=== PATIENT | female | born 1960 | race American Indian/Alaskan Native ===

== ENCOUNTER 2017-11-10 13:08 | Emergency (ER) | payer OTHER ==
[~2017-11-10] VITALS: Ht 154.9 cm; Wt 84.9 kg
[~2017-11-10 13:08] MED LIST: ALBIPROI INH; ALBU90OI INH; BLOOD PRESSURE MED; CHLO50; CHLO50 PO; CIPR500 PO; CITA20 PO; CYCL10 PO; DIAZ10 PO; DIAZ2 PO; DIAZ5 PO; DOCU100 PO; FAMO40 PO; GABA300 PO; HYDACE10B PO; HYDACE5 PO; HYDCHL12.5 PO; HYOS.125 SL; IBUP800 PO; KARIVA; LIND60T TOP; LISI5 PO; MELO7.5 PO; METCAR500 PO; METF500 PO; METO10 PO; OXYACE5T PO; OXYACEL PO; PHENY100ER; PHENY100ER PO; PROACE100 PO; RXHYOS.125 PO; RXPROACE PO; SULTRIDS PO; TOLT2 PO; TRAM50 PO; WATER PILL; [UNRECOGNIZED DRUG - OTHER]; [UNRECOGNIZED DRUG - REMARK]; [UNRECOGNIZED DRUG - REMARK]
[2017-11-10 13:45] LABS: BASOPHILS ABSOLUTE AUTO 0.09 K/mm3 (0.00-0.23); BASOPHILS PERCENT AUTO 1 % (0-2); EOSINOPHILS ABSOLUTE AUTO 0.39 K/mm3 (0.00-0.68); EOSINOPHILS PERCENT AUTO 4 % (0-6); Hematocrit 41.7 % (33.0-51.0); Hemoglobin 13.6 g/dL (11.5-16.0); IMMATURE GRAN ABSOLUTE AUTO 0.03 K/mm3 (0.00-0.10); IMMATURE GRAN PERCENT AUTO 0 % (0-1); LYMPHOCYTES ABSOLUTE AUTO 2.81 K/mm3 (0.84-5.20); LYMPHOCYTES PERCENT AUTO 26 % (21-46); MONOCYTES ABSOLUTE AUTO 0.94 K/mm3 (0.16-1.47); MONOCYTES PERCENT AUTO 9 % (4-13); Mean Corpuscular HGB 28.5 pg (26.0-34.0); Mean Corpuscular HGB Conc 32.6 g/dL (31.5-36.5); Mean Corpuscular Volume 87 fL (80-100); NEUTROPHILS ABSOLUTE AUTO 6.73 K/mm3 (1.96-9.15); NEUTROPHILS PERCENT AUTO 61 % (41-73); Platelet Count 362 K/mm3 (150-400); RDW Coefficient Variation 13.6 % (11.7-14.2); RDW Standard Deviation 43.5 fL (35.1-46.3); Red Blood Cell Count 4.77 M/mm3 (3.80-5.20); White Blood Cell Count 10.99 K/mm3 (4.00-11.30)
[2017-11-10 14:04] LABS: Alanine Aminotransfer (ALT/SGP 24 U/L (12-78); Albumin, Blood 3.6 g/dL (3.4-5.0); Alk Phos 106 U/L (50-136); Anion Gap 8 mmol/L (6-16); Aspartate Aminotrans (AST/SGOT 19 U/L (12-37); Bilirubin, Total 0.4 mg/dL (0.1-1.0); Blood Urea Nitrogen 17 mg/dL (8-24); Bun/Creatinine Ratio 27.5 (12.0-20.0); CO2, Blood 27 mmol/L (21-32); Calcium, Blood 8.9 mg/dL (8.5-10.1); Chloride, Blood 103 mmol/L (98-108); Creatinine, Blood 0.62 mg/dL (0.40-1.00); Globulin, Blood 3.6 g/dL (2.2-4.0); Glomerular Filtration Rate >60 (60-); Glucose, Blood 120 mg/dL (70-99); Potassium, Blood 4.3 mmol/L (3.5-5.5); Sodium, Blood 138 mmol/L (136-145); Total Protein, Blood 7.2 g/dL (6.4-8.2)
== END 2017-11-10 18:15 | disposition home or self-care (01) ==
LOC: ER 13:08
PROVIDERS: Physician Assistant
DX: R42 Dizziness and giddiness (principal); M25.569 Pain in unspecified knee; G89.29 Other chronic pain; E86.0 Dehydration; Z88.0 Allergy status to penicillin; Z79.899 Other long term (current) drug therapy; Z79.84 Long term (current) use of oral hypoglycemic drugs; J45.909 Unspecified asthma, uncomplicated; E11.9 Type 2 diabetes mellitus without complications; F17.200 Nicotine dependence, unspecified, uncomplicated
CPT/HCPCS: 36415; 80053; 85025; 93005; 93010; 96360; 96361; 99283; J7030

== ENCOUNTER 2018-02-01 16:10 | Emergency (ER) | payer OTHER ==
[~2018-02-01] VITALS: Ht 154.9 cm; Wt 90.7 kg
[2018-02-01] MEDS ORDERED: Bactrim Ds Tab1 EACH PO (17:10)
[2018-02-01] MEDS ORDERED: CEPH500 PO (17:10)
[2018-02-01] MEDS ORDERED: Mupirocin22 GM TOP (17:10)
== END 2018-02-01 17:28 | disposition home or self-care (01) ==
LOC: ER 16:10
DX: L08.9 Local infection of the skin and subcutaneous tissue, unspecified (principal); Z88.0 Allergy status to penicillin; Z79.899 Other long term (current) drug therapy; Z79.84 Long term (current) use of oral hypoglycemic drugs; J45.909 Unspecified asthma, uncomplicated; E11.9 Type 2 diabetes mellitus without complications; F17.200 Nicotine dependence, unspecified, uncomplicated
CPT/HCPCS: 99282

== ENCOUNTER → 2018-06-02 | Outpatient (CLI) | payer OTHER ==
[~2018-06-02] MED LIST changes: +ACET325 PO; +Bactrim Ds Tab1 EACH PO; +CEPH500 PO; +CHLO100 PO; +HEPARIN 5,5000 UNIT3 SC; +Humulin R500 UNIT/1; +MERREM1 GM IV; +Miralax17 GM PO; +Mupirocin22 GM TOP; +Sodium Chlorid250 M1 IV; +VANCOMYCIN1.25 GM/21 IV
== END | disposition home or self-care (01) ==
LOC: LAB EV 14:41 → LAB SHORT 14:41
DX: S99.822A Other specified injuries of left foot, initial encounter (principal)
CPT/HCPCS: 87070; 87077; 87147; 87186; 87205

== ENCOUNTER → 2018-06-08 | Outpatient (CLI) | payer OTHER | END | disposition home or self-care (01) | LOC: LAB 12:13 → LAB SHORT 12:13 | DX: L03.116 Cellulitis of left lower limb (principal); L08.89 Other specified local infections of the skin and subcutaneous tissue | CPT/HCPCS: 87070; 87075; 87077; 87147; 87186; 87205 ==

== ENCOUNTER 2018-06-18 13:06 | Inpatient (IN) | payer OTHER ==
[~2018-06-18] VITALS: Ht 154.9 cm; Wt 84.1 kg
[~2018-06-18 13:06] MED LIST changes: -ACET325 PO; -CHLO100 PO; -HEPARIN 5,5000 UNIT3 SC; -Humulin R500 UNIT/1; -MERREM1 GM IV; -Miralax17 GM PO; -Sodium Chlorid250 M1 IV; -VANCOMYCIN1.25 GM/21 IV
[2018-06-18 14:22] LABS: Alanine Aminotransfer (ALT/SGP 20 U/L (12-78); Albumin, Blood 3.6 g/dL (3.4-5.0); Albumin/Globulin Ratio 0.9 (0.8-1.8); Alk Phos 92 U/L (50-136); Anion Gap 9 mmol/L (6-16); Aspartate Aminotrans (AST/SGOT 25 U/L (12-37); Bilirubin, Total 0.7 mg/dL (0.1-1.0); Blood Urea Nitrogen 21 mg/dL (8-24); Bun/Creatinine Ratio 22.3 (12.0-20.0); CO2, Blood 24 mmol/L (21-32); Calcium, Blood 8.9 mg/dL (8.5-10.1); Chloride, Blood 99 mmol/L (98-108); Creatinine, Blood 0.94 mg/dL (0.40-1.00); Globulin, Blood 3.9 g/dL (2.2-4.0); Glomerular Filtration Rate >60 (60-); Glucose, Blood 117 mg/dL (70-99); Potassium, Blood 4.4 mmol/L (3.5-5.5); Sodium, Blood 132 mmol/L (136-145); Total Protein, Blood 7.5 g/dL (6.4-8.2)
[2018-06-18 14:28] LABS: International Normalized Ratio 0.99; Prothrombin Time Results 10.5 Sec (9.7-11.5)
[2018-06-18 15:06] LABS: BASOPHILS ABSOLUTE AUTO 0.06 K/mm3 (0.00-0.23); BASOPHILS PERCENT AUTO 1 % (0-2); EOSINOPHILS ABSOLUTE AUTO 0.02 K/mm3 (0.00-0.68); EOSINOPHILS PERCENT AUTO 0 % (0-6); Hemoglobin 12.9 g/dL (11.5-16.0); IMMATURE GRAN ABSOLUTE AUTO 0.04 K/mm3 (0.00-0.10); IMMATURE GRAN PERCENT AUTO 0 % (0-1); LYMPHOCYTES ABSOLUTE AUTO 0.89 K/mm3 (0.84-5.20); LYMPHOCYTES PERCENT AUTO 7 % (21-46); MONOCYTES ABSOLUTE AUTO 0.93 K/mm3 (0.16-1.47); MONOCYTES PERCENT AUTO 7 % (4-13); Mean Corpuscular HGB 28.6 pg (26.0-34.0); Mean Corpuscular HGB Conc 32.3 g/dL (31.5-36.5); Mean Corpuscular Volume 89 fL (80-100); Mean Platelet Volume 8.6 fL (9.1-12.4); NEUTROPHILS ABSOLUTE AUTO 10.76 K/mm3 (1.96-9.15); NEUTROPHILS PERCENT AUTO 85 % (41-73); Platelet Count 400 K/mm3 (150-400); RDW Coefficient Variation 13.2 % (11.7-14.2); RDW Standard Deviation 43.4 fL (35.1-46.3); Red Blood Cell Count 4.51 M/mm3 (3.80-5.20)
[2018-06-18 15:13] LABS: Source, Urine Clean Catch
[2018-06-18 15:31] LABS: Appearance, Urine Clear (Clear); Blood, Urine 1+ (Neg); Color, Urine Yellow (P-Yellow); Glucose Qualitative, Urine Neg (Neg); Ketones, Urine 1+ (Neg); Leukocyte Esterase, Urine 2+ (Neg); Nitrite, Urine Neg (Neg); Protein, Urine 2+ (Neg); Specific Gravity, Urine 1.025 (1.003-1.022); Urobilinogen, Urine 2+ (Normal)
[2018-06-18 15:47] LABS: Bilirubin, Urine 1+ (Neg)
[2018-06-18 15:57] LABS: Bacteria Mod /hpf; Hyaline Casts 0-2 /lpf (0-2); Mucus Heavy (0-Heavy); Squamous Epithelial Cells Many /hpf (Few)
[2018-06-19 05:02] LABS: BASOPHILS ABSOLUTE AUTO 0.06 K/mm3 (0.00-0.23); BASOPHILS PERCENT AUTO 1 % (0-2); EOSINOPHILS ABSOLUTE AUTO 0.01 K/mm3 (0.00-0.68); EOSINOPHILS PERCENT AUTO 0 % (0-6); Hematocrit 36.5 % (33.0-51.0); Hemoglobin 11.7 g/dL (11.5-16.0); IMMATURE GRAN ABSOLUTE AUTO 0.05 K/mm3 (0.00-0.10); IMMATURE GRAN PERCENT AUTO 1 % (0-1); LYMPHOCYTES ABSOLUTE AUTO 0.78 K/mm3 (0.84-5.20); LYMPHOCYTES PERCENT AUTO 10 % (21-46); MONOCYTES ABSOLUTE AUTO 0.76 K/mm3 (0.16-1.47); MONOCYTES PERCENT AUTO 10 % (4-13); Mean Corpuscular HGB 28.1 pg (26.0-34.0); Mean Corpuscular HGB Conc 32.1 g/dL (31.5-36.5); Mean Corpuscular Volume 88 fL (80-100); Mean Platelet Volume 8.8 fL (9.1-12.4); NEUTROPHILS ABSOLUTE AUTO 5.86 K/mm3 (1.96-9.15); NEUTROPHILS PERCENT AUTO 78 % (41-73); Platelet Count 324 K/mm3 (150-400); RDW Coefficient Variation 13.6 % (11.7-14.2); RDW Standard Deviation 43.7 fL (35.1-46.3); Red Blood Cell Count 4.16 M/mm3 (3.80-5.20); White Blood Cell Count 7.52 K/mm3 (4.00-11.30)
--- NOTE | 2018-06-19 05:07 | NUR ---
VSS, AFEBRILE, A/O, CAN BE HYPOTENSIVE AT TIMES, POSITVE UA, 20G L AC, 20G R HAND, 1 PA TO BSC, CBG ACHS, WOUND ON BOTTOM OF L HEEL, PHOTOS IN CHART, REPORTS BEING HOMELESS, SLEPT WELL, NO COMPLAINTS.
[2018-06-19 05:40] LABS: Alanine Aminotransfer (ALT/SGP 26 U/L (12-78); Albumin, Blood 2.8 g/dL (3.4-5.0); Albumin/Globulin Ratio 0.8 (0.8-1.8); Alk Phos 73 U/L (50-136); Anion Gap 8 mmol/L (6-16); Aspartate Aminotrans (AST/SGOT 76 U/L (12-37); Bilirubin, Total 0.5 mg/dL (0.1-1.0); Blood Urea Nitrogen 13 mg/dL (8-24); Bun/Creatinine Ratio 17.1 (12.0-20.0); CO2, Blood 23 mmol/L (21-32); Calcium, Blood 7.7 mg/dL (8.5-10.1); Chloride, Blood 107 mmol/L (98-108); Creatinine, Blood 0.76 mg/dL (0.40-1.00); Globulin, Blood 3.3 g/dL (2.2-4.0); Glomerular Filtration Rate >60 (60-); Glucose, Blood 88 mg/dL (70-99); Potassium, Blood 4.1 mmol/L (3.5-5.5); Sodium, Blood 138 mmol/L (136-145); Total Protein, Blood 6.1 g/dL (6.4-8.2)
--- NOTE | 2018-06-19 16:27 | NUR ---
REQUEST FOR PERMISSION OF CARE:PT WAS SLEEPING, WILL ASK AGAIN TOMORROW. NURSE DIRECTED TO THIS PATIENT SHE "WILL BE GOOD WITH STUDENT AND ALLOWS ASSISTANCE OF STUDENTS IN ALL CARE".
--- NOTE | 2018-06-19 16:42 | NUR ---
PATIENT ABLE TO GET TO BEDSIDE COMMODE INDEPENDENTLY. DR. NEIL STATES THAT HE WILL REWRAP THE FOOT TOMORROW. HE STATES TO KEEP THE DRESSING C/D/I UNTIL THEN. NO COMPLAINTS OF PAIN AT THIS TIME. WILL CONTINUE TO MONITOR
--- NOTE | 2018-06-19 23:20 | NUR ---
LT AC IV DC IV HAD BEEN CHECKED PRIOR TO AND AFTER VANCO ADMINISTRATION AND WAS PATIENT BUT ALARMED FREQUENTLY. NS HAD BEEN RUNNING AFTER VANCO AND IV WAS INFLAMMED. PT HAS 2ND IV RT HAND. COBAN APPLIED AND IV DC LT AC.
--- NOTE | 2018-06-20 05:56 | NUR ---
58 YEAR OLD FEMALE WITH LT FOOT WOUND CAUSED BY BROKEN GLASS WHICH HAS BEEN REMOVED HAD WOUND CULTURE WHICH SHOWED MRSA ECOLI AND ESBL IN WOUND CULTURE CONTINUES IN ISOLATION CONTACT. PT HAS HOMELESS STATUS BUT SAYS SHE IS LOOKING FOR HOUSING WITH OTHER FAMILY MEMBERS BUT CURRENTLY RESIDES DURING NIGHT AT THE [facility] WHERE SHE CAN ONLY SLEEP THERE. DRAINING INFECTED LT FOOT WOUND. EQUIPMENT SERVICES ASSOCIATE REFERRAL MADE TO ASSESS SUPPORT AND RESOURCES. PT COOPERATIVE. COOPERATIVE WITH MEDICAL THERAPY. SMOKING CESSATION ENCOURAGED.
--- NOTE | 2018-06-20 16:10 | NUR ---
TALKED TO ABOUT HYPOTENSION. BOLUS? STOP ZESTRIL OR OREITIC? BOLUS NACL 500 MG ORDERED. WILL LOOK AT MEDS.
--- NOTE | 2018-06-20 17:19 | NUR ---
PATIENT ALERT AND ORIENTED. WAS IN EARLY THIS AM AND CHECKED FOOT. WILL RETURN TOMORROW AND POSS GO TO SURGERY. DRESSING C/D/I. PATIENT INDEPENDENT TO BSC THAT IS NEXT TO BED. IV RT HAND PATENT. BOLUS GIVEN FOR HYPOTENSION. BED IN LOW POSITION. CALL LIGHT WITHIN REACH. WILL CONTINUE TO MONITOR.
--- NOTE | 2018-06-20 17:45 | NUR ---
BLOOD PRESSURE TAKEN AFTER FLUID BOLUS. 101/59.
--- NOTE | 2018-06-21 05:46 | NUR ---
*SHIFT SUMMARY* PATIENT IS ALERT AND ORIENTED. NO COMPLAINTS OF PAIN THROUGHOUT THE NIGHT. PT UP TO BSC INDEPENDENTLY. NPO AT MIDNIGHT. USES CALL LIGHT APPROPRIATELY. NO NEW CHANGES TO STATUS, BED LOWERED AND LOCKED.
[2018-06-21 09:05] LABS: Creatinine, Blood 0.68 mg/dL (0.40-1.00)
--- NOTE | 2018-06-21 11:01 | NUR ---
INTO SDS VIA [employer]. PT A&OX3-REPORTS 10/10 LEFT FOOT/HEEL PAIN. [place] WRAP TO LEFT FOOT C/D/I-LUNGS WITH SCATTERED RHONCHI AND DIMINISHED IN BASES-SATS>90% ON RA. HISTORY AND ALLERGIES REVIEWED. NPO STATUS CONFIRMED. PT IN CONTACT ISOLATION FOR MRSA IN WOUND.
--- NOTE | 2018-06-21 13:13 | NUR ---
LEFT MESSAGE ON CELL PHONE AND AT HIS OFFICE; CAN PATIENT EAT AND DRESSING CHANGES? PER TRUDY AT OFFICE SHE OR MD WILL CALL ME BACK.
--- NOTE | 2018-06-21 13:26 | NUR ---
PER TRUDY AT ; DON'T TOUCH THE WOUND HE WILL DEAL WITH IT AND SHE CAN EAT.
--- NOTE | 2018-06-21 13:30 | NUR ---
TALKED TO ABOUT BACTROBAN ON FOOT WOUND THAT I&D. PER "DON'T TOUCH THE DRESSING" AND BACTROBAN IS ORDERED TID. OK TO D'C
--- NOTE | 2018-06-21 18:16 | NUR ---
PATIENT ALERT AND ORIENTED. TOOK PATIENT TO SURGERY TO I&D LEFY FOOT HEEL. PATIENT TOLERATED WELL. WILL BE IN TOMORROW TO RECHECK WOUND. PATIENT ABLE TO WIGGLE ALL TOES. MEDICATED FOR PAIN. IV X 2 PATENT. UNLABORED RESPIRATIONS. ABLE TO MAKE NEEDS KNOWN. BED IN LOW POSITION. CALL LIGHT WITHIN REACH. WILL CONTINUE TO MONITOR.
--- NOTE | 2018-06-22 05:52 | NUR ---
*SHIFT SUMMARY* PATIENT ALERT AND ORIENTED. HAD COMPLAINTS OF PAIN ONCE THROUGHOUT THE NIGHT, MEDICATED ORDERED. PATIENT SLEPT MOST OF THE NIGHT. PT USED BSC WITH SBA FROM COMPUTER AIDED DESIGN TECHNICIAN. PATIENT IS RECEPTIVE TO CARE AND ASKS QUESTIONS ABOUT FOOT WOUND. DRESSING TO BE CHANGED IN AM BY DR. NEIL. NO NEW CHANGES TO PATIENTS STATUS. VITAL SIGNS STABLE. CALL LIGHT WITHIN REACH. BED LOWERED AND LOCKED.
[2018-06-22 06:38] LABS: BASOPHILS ABSOLUTE AUTO 0.04 K/mm3 (0.00-0.23); BASOPHILS PERCENT AUTO 1 % (0-2); EOSINOPHILS PERCENT AUTO 1 % (0-6); Hemoglobin 11.8 g/dL (11.5-16.0); IMMATURE GRAN ABSOLUTE AUTO 0.02 K/mm3 (0.00-0.10); IMMATURE GRAN PERCENT AUTO 0 % (0-1); LYMPHOCYTES ABSOLUTE AUTO 2.76 K/mm3 (0.84-5.20); LYMPHOCYTES PERCENT AUTO 32 % (21-46); MONOCYTES ABSOLUTE AUTO 0.92 K/mm3 (0.16-1.47); MONOCYTES PERCENT AUTO 11 % (4-13); Mean Corpuscular HGB Conc 31.9 g/dL (31.5-36.5); Mean Corpuscular Volume 88 fL (80-100); NEUTROPHILS ABSOLUTE AUTO 4.88 K/mm3 (1.96-9.15); NEUTROPHILS PERCENT AUTO 56 % (41-73); Platelet Count 402 K/mm3 (150-400); RDW Coefficient Variation 13.1 % (11.7-14.2); RDW Standard Deviation 42.8 fL (35.1-46.3); Red Blood Cell Count 4.21 M/mm3 (3.80-5.20); White Blood Cell Count 8.72 K/mm3 (4.00-11.30)
[2018-06-22 07:06] LABS: Anion Gap 7 mmol/L (6-16); Blood Urea Nitrogen 16 mg/dL (8-24); Bun/Creatinine Ratio 25.9 (12.0-20.0); CO2, Blood 30 mmol/L (21-32); Calcium, Blood 8.6 mg/dL (8.5-10.1); Chloride, Blood 101 mmol/L (98-108); Creatinine, Blood 0.62 mg/dL (0.40-1.00); Glomerular Filtration Rate >60 (60-); Glucose, Blood 139 mg/dL (70-99); Magnesium, Blood 1.8 mg/dL (1.6-2.4); Phosphorus, Blood 3.1 mg/dL (2.5-4.9); Potassium, Blood 3.8 mmol/L (3.5-5.5); Sodium, Blood 138 mmol/L (136-145)
--- NOTE | 2018-06-22 11:12 | NUR ---
PER PATIENT , CAME IN AROUND 715 AND CHANGED DRESSING.
--- NOTE | 2018-06-22 18:27 | NUR ---
ALERT AND ORIENTED. WENT OUTSIDE IN OWN W/C BY HERSELF FOR ABOUT ONE HOUR. LEFT FOOT WAS CHECKED AND WRAPPED BY PODIATRY.PER PATIENT WOULD BE BACK TOMORROW. IV PATENT. ABLE TO MAKE NEEDS KNOWN. UNLABORED RESPIRATIONS. CHERRFUL. DEVELOPMENTALLY DELAYED. REPEATS QUESTIONS. WILL CONTINUE TO MONITOR.
--- NOTE | 2018-06-23 04:26 | NUR ---
SHIFT SUMMARY A/O, ABLE TO MAKE NEEDS KNOWN. COOPERATIVE WITH CARE. ANSWERS QUESTIONS APPROPRIATELY. C/O PAIN TO L FOOT; RATED 9/10, MEDICATED PER EMAR. ABX ADMINISTERED WITHOUT COMPLICATIONS. APPEARED TO REST MUCH OF SHIFT. VSS/AFEBRILE. UP TO BSC INDEPENDENTLY. BED IN LOWEST POSITION. CALL LIGHT AND BELONGINGS WITHIN REACH. WCTM. REPORT TO ONCOMING RN.
[2018-06-23 08:41] LABS: Vancomycin, Trough 14.5 ug/mL (5.0-10.0)
--- NOTE | 2018-06-23 08:43 | NUR ---
PATIENT GAVE PERMISSION FOR ME TO CARE FOR HER TODAY 06/23/18
[2018-06-23] MEDS ORDERED: ACET325 PO (10:59)
[2018-06-23] MEDS ORDERED: DOCU100 PO (11:00)
[2018-06-23] MEDS ORDERED: HEPARIN 5,5000 UNIT3 SC (11:02)
[2018-06-23] MEDS ORDERED: CHLO100 PO (11:03)
[2018-06-23] MEDS ORDERED: Humulin R500 UNIT/1 (11:04)
[2018-06-23] MEDS ORDERED: MERREM1 GM IV (11:05)
[2018-06-23] MEDS ORDERED: Miralax17 GM PO (11:05)
[2018-06-23] MEDS ORDERED: Sodium Chlorid250 M1 IV (11:07)
[2018-06-23] MEDS ORDERED: VANCOMYCIN1.25 GM/21 IV (11:08)
[2018-06-23] MEDS ORDERED: TRAM50 PO (11:09)
--- NOTE | 2018-06-23 16:57 | NUR ---
REPORT CALLED TO BRENDON. IV LEFT IN FOR RETIREMENT ANTIBIOTICS. PATIENT'S FAMILY NOTIFIED OF MOVE. AWAITING TRANSPORT WITH [facility]
== END 2018-06-23 17:55 | disposition home or self-care (01) | DRG 854 ==
LOC: ER 13:06 → MEDS 16:55
PROVIDERS: Hospitalist; Internal Medicine; Pharmacist; Physician Assistant; Podiatrist Foot & Ankle Surgery; ADMIT Internal Medicine
PROC: 0QDM0ZZ Extraction of Left Tarsal, Open Approach (ICD-10-PCS; principal; 2018-06-21 11:30)
DX: A41.01 Sepsis due to Methicillin susceptible Staphylococcus aureus (principal); L03.116 Cellulitis of left lower limb; I10 Essential (primary) hypertension; G89.4 Chronic pain syndrome; E11.40 Type 2 diabetes mellitus with diabetic neuropathy, unspecified; F41.8 Other specified anxiety disorders; M51.36 Other intervertebral disc degeneration, lumbar region; G40.909 Epilepsy, unspecified, not intractable, without status epilepticus; Z79.4 Long term (current) use of insulin; B96.4 Proteus (mirabilis) (morganii) as the cause of diseases classified elsewhere; F17.210 Nicotine dependence, cigarettes, uncomplicated; S91.332A Puncture wound without foreign body, left foot, initial encounter; W25.XXXA Contact with sharp glass, initial encounter; Y92.9 Unspecified place or not applicable
CPT/HCPCS: 36415; 73630; 80053; 80069; 80202; 81001; 82565; 82947; 83605; 83735; 85025; 85610; 87040; 87070; 87075; 87076; 87077; 87086; 87185; 87186; 87205; 93005; 93010; 96365; 96366; 96367; 96375; 97110; 97162; 97530; 99285-25; C1751; J0694; J0744; J1100; J1644; J2185; J2405; J3010; J3370; J7030; J7040; J7050; J7120; P9612

== ENCOUNTER → 2018-09-09 | Outpatient (CLI) | payer OTHER ==
[~2018-09-09] MED LIST changes: +ACET325 PO; +CHLO100 PO; +HEPARIN 5,5000 UNIT3 SC; +Humulin R500 UNIT/1; +MERREM1 GM IV; +Miralax17 GM PO; +Sodium Chlorid250 M1 IV; +VANCOMYCIN1.25 GM/21 IV
[2018-09-09 12:12] LABS: BASOPHILS ABSOLUTE AUTO 0.09 K/mm3 (0.00-0.23); BASOPHILS PERCENT AUTO 1 % (0-2); EOSINOPHILS ABSOLUTE AUTO 0.17 K/mm3 (0.00-0.68); EOSINOPHILS PERCENT AUTO 1 % (0-6); Hematocrit 38.1 % (33.0-51.0); Hemoglobin 13.2 g/dL (11.5-16.0); IMMATURE GRAN ABSOLUTE AUTO 0.07 K/mm3 (0.00-0.10); IMMATURE GRAN PERCENT AUTO 1 % (0-1); LYMPHOCYTES ABSOLUTE AUTO 2.54 K/mm3 (0.84-5.20); LYMPHOCYTES PERCENT AUTO 19 % (21-46); MONOCYTES ABSOLUTE AUTO 1.57 K/mm3 (0.16-1.47); MONOCYTES PERCENT AUTO 12 % (4-13); Mean Corpuscular HGB 28.8 pg (26.0-34.0); Mean Corpuscular HGB Conc 34.6 g/dL (31.5-36.5); Mean Platelet Volume 8.9 fL (9.1-12.4); NEUTROPHILS ABSOLUTE AUTO 8.77 K/mm3 (1.96-9.15); NEUTROPHILS PERCENT AUTO 66 % (41-73); Platelet Count 502 K/mm3 (150-400); RDW Coefficient Variation 13.6 % (11.7-14.2); Red Blood Cell Count 4.58 M/mm3 (3.80-5.20); White Blood Cell Count 13.21 K/mm3 (4.00-11.30)
[2018-09-09 12:27] LABS: Alanine Aminotransfer (ALT/SGP 35 U/L (12-78); Albumin, Blood 3.2 g/dL (3.4-5.0); Albumin/Globulin Ratio 0.7 (0.8-1.8); Alk Phos 119 U/L (40-126); Anion Gap 9 mmol/L (6-16); Aspartate Aminotrans (AST/SGOT 19 U/L (12-37); Bilirubin, Total 0.5 mg/dL (0.1-1.0); Blood Urea Nitrogen 19 mg/dL (8-24); Bun/Creatinine Ratio 25.3 (12.0-20.0); CO2, Blood 26 mmol/L (21-32); Chloride, Blood 95 mmol/L (98-108); Creatinine, Blood 0.75 mg/dL (0.40-1.00); Globulin, Blood 4.9 g/dL (2.2-4.0); Glomerular Filtration Rate >60 (60-); Glucose, Blood 99 mg/dL (70-99); Potassium, Blood 4.4 mmol/L (3.5-5.5); Sodium, Blood 130 mmol/L (136-145); Total Protein, Blood 8.1 g/dL (6.4-8.2)
[2018-09-09 12:50] LABS: Mean Corpuscular Volume 83 fL (80-100)
== END ==
LOC: LAB SHORT 12:06 → LAB EV 12:06
PROVIDERS: Nurse Practitioner
DX: L08.9 Local infection of the skin and subcutaneous tissue, unspecified (principal)
CPT/HCPCS: 80053; 85025

== ENCOUNTER → 2018-09-09 | Outpatient (CLI) | payer OTHER | LOC: LAB EV 11:25 → LAB SHORT 11:25 | DX: L08.9 Local infection of the skin and subcutaneous tissue, unspecified (principal) | CPT/HCPCS: 87070; 87077; 87147; 87186; 87205 ==

== ENCOUNTER 2018-10-14 10:46 | Day surgery (SDC) | payer OTHER ==
[~2018-10-14] VITALS: Ht 154.9 cm; Wt 84.5 kg
--- NOTE | 2018-10-14 12:31 | NUR ---
10/14/18 1231 Luc Harris 1ST IV ATTEMPT IN LAC INFILTRATED, ORSC.RXS 2ND IV ATTEMPT IN LH UNSUCCESSFUL, ORSC.RXS 3RD IV ATTEMPT IN RH UNSUCCESSFUL, ORSC.RXS 4TH IV ATTEMPT IN LEFT FOOT SUCCESSFUL, ORSC,RXS
[2018-10-14 13:28] LABS: BASOPHILS ABSOLUTE AUTO 0.11 K/mm3 (0.00-0.23); BASOPHILS PERCENT AUTO 1 % (0-2); EOSINOPHILS ABSOLUTE AUTO 0.35 K/mm3 (0.00-0.68); EOSINOPHILS PERCENT AUTO 2 % (0-6); Hematocrit 42.9 % (33.0-51.0); Hemoglobin 13.7 g/dL (11.5-16.0); IMMATURE GRAN ABSOLUTE AUTO 0.05 K/mm3 (0.00-0.10); IMMATURE GRAN PERCENT AUTO 0 % (0-1); LYMPHOCYTES ABSOLUTE AUTO 3.42 K/mm3 (0.84-5.20); LYMPHOCYTES PERCENT AUTO 23 % (21-46); MONOCYTES ABSOLUTE AUTO 1.18 K/mm3 (0.16-1.47); MONOCYTES PERCENT AUTO 8 % (4-13); Mean Corpuscular HGB 28.1 pg (26.0-34.0); Mean Corpuscular HGB Conc 31.9 g/dL (31.5-36.5); Mean Corpuscular Volume 88 fL (80-100); Mean Platelet Volume 8.8 fL (9.1-12.4); NEUTROPHILS ABSOLUTE AUTO 9.52 K/mm3 (1.96-9.15); NEUTROPHILS PERCENT AUTO 65 % (41-73); Platelet Count 413 K/mm3 (150-400); RDW Coefficient Variation 14.2 % (11.7-14.2); RDW Standard Deviation 45.5 fL (35.1-46.3); Red Blood Cell Count 4.87 M/mm3 (3.80-5.20); White Blood Cell Count 14.63 K/mm3 (4.00-11.30)
[2018-10-14 13:58] LABS: Anion Gap 6 mmol/L (6-16); Blood Urea Nitrogen 21 mg/dL (8-24); CO2, Blood 27 mmol/L (21-32); Calcium, Blood 9.5 mg/dL (8.5-10.1); Chloride, Blood 102 mmol/L (98-108); Creatinine, Blood 0.62 mg/dL (0.40-1.00); Glomerular Filtration Rate >60 (60-); Glucose, Blood 91 mg/dL (70-99); Potassium, Blood 4.3 mmol/L (3.5-5.5); Sodium, Blood 135 mmol/L (136-145)
--- NOTE | 2018-10-14 15:29 | NUR ---
10/14/18 1529 FosterSherrie S GOOD CAP REFILL TO LEFT TOES. ABLE TO FEEL ALITTLE BIT TOUCH TO TOES, BUT ALSO NUMB. LEFT FOOT ELEVATED UP ON PILLOW IN RECLINER WITH ICE BEHIND HER LEFT KNEE. PT. EATING [employer] & DRINKING COFFEE. GARCÍA AT HER SIDE IN ROOM ALSO.
== END 2018-10-14 16:20 | disposition home or self-care (01) ==
LOC: ORSCSDS 10:46
PROVIDERS: Podiatrist Foot & Ankle Surgery
PROC: 0JBR0ZZ Excision of Left Foot Subcutaneous Tissue and Fascia, Open Approach (ICD-10-PCS; principal; 2018-10-14 12:15)
PROC: 0LBP0ZZ Excision of Left Lower Leg Tendon, Open Approach (ICD-10-PCS; principal; 2018-10-14 12:15)
DX: L02.612 Cutaneous abscess of left foot (principal); E78.5 Hyperlipidemia, unspecified; I10 Essential (primary) hypertension; J44.9 Chronic obstructive pulmonary disease, unspecified; E11.9 Type 2 diabetes mellitus without complications; F17.210 Nicotine dependence, cigarettes, uncomplicated; Z79.899 Other long term (current) drug therapy
CPT/HCPCS: 36415; 80048; 82947; 85025; 87070; 87075; 87077; 87186; 87205; A9270-GY; J2250; J2704; J3010; J7120

== ENCOUNTER 2019-04-06 12:57 | Emergency (ER) | payer OTHER ==
[~2019-04-06] VITALS: Ht 154.9 cm; Wt 85.7 kg
[2019-04-06] MEDS ORDERED: Simvastatin20 MG PO (13:10)
[2019-04-06] MEDS ORDERED: PROP10 PO (13:11)
[2019-04-06] MEDS ORDERED: LISI5 PO (13:11)
[2019-04-06] MEDS ORDERED: Zantac150 MG PO (13:12)
[2019-04-06] MEDS ORDERED: Mobic15 MG PO (13:12)
[2019-04-06] MEDS ORDERED: METF500C PO (13:13)
[2019-04-06] MEDS ORDERED: CHLO50 PO (13:14)
[2019-04-06] MEDS ORDERED: Zanaflex4 MG PO (13:15)
[2019-04-06] MEDS ORDERED: MONT10T PO (13:15)
[2019-04-06] MEDS ORDERED: DICL75ER PO (13:16)
[2019-04-06 14:52] LABS: Source, Urine Catheter
[2019-04-06 14:55] LABS: Blood, Urine 1+ (Neg); Glucose Qualitative, Urine Neg (Neg); Ketones, Urine 4+ (Neg); Leukocyte Esterase, Urine 1+ (Neg); Nitrite, Urine Neg (Neg); Protein, Urine 2+ (Neg); Urobilinogen, Urine 2+ (Normal)
[2019-04-06 15:04] LABS: Bilirubin, Urine 1+ (Neg)
[2019-04-06 15:07] LABS: Appearance, Urine Hazy (Clear); Color, Urine Amber (P-Yellow); Mucus Mod (0-Heavy)
[2019-04-06 15:08] LABS: Bacteria Few /hpf; Squamous Epithelial Cells Few /hpf (Few)
[2019-04-06 16:25] LABS: Influenza A Negative (NEGATIVE); Influenza B Negative (NEGATIVE)
[2019-04-06 16:45] LABS: Calcium, Ionized (POC) 1.07 mmol/L (1.10-1.46); Chloride (POC) 99 mmol/L (98-108); Creatinine (POC) 0.6 mg/dL (0.6-1.0); Glucose (ISTAT POC) 116 mg/dL (70-99); Sodium (POC) 139 mmol/L (135-148); Total CO2 (POC) 31 mmol/L (21-32)
[2019-04-06] MEDS ORDERED: PROM25 PO (16:54)
== END 2019-04-06 17:35 | disposition home or self-care (01) ==
LOC: ER 12:57
PROVIDERS: Emergency Medicine
DX: A08.4 Viral intestinal infection, unspecified (principal); E11.9 Type 2 diabetes mellitus without complications; J45.909 Unspecified asthma, uncomplicated; F17.210 Nicotine dependence, cigarettes, uncomplicated; Z79.899 Other long term (current) drug therapy; Z79.84 Long term (current) use of oral hypoglycemic drugs
CPT/HCPCS: 71046; 80047; 80053; 81001; 85014; 85025; 87086; 87804; 93005; 93010; 96361; 96374; 96376; 99284-25; J2550; J7120; P9612

== ENCOUNTER 2019-11-07 18:38 | Emergency (ER) | payer OTHER ==
[~2019-11-07] VITALS: Ht 154.9 cm; Wt 96.2 kg
[~2019-11-07 18:38] MED LIST changes: +DICL75ER PO; +METF500C PO; +MONT10T PO; +Mobic15 MG PO; +PROM25 PO; +PROP10 PO; +Simvastatin20 MG PO; +Zanaflex4 MG PO; +Zantac150 MG PO
[2019-11-07 19:42] LABS: BASOPHILS ABSOLUTE AUTO 0.06 K/mm3 (0.00-0.23); BASOPHILS PERCENT AUTO 1 % (0-2); EOSINOPHILS ABSOLUTE AUTO 0.03 K/mm3 (0.00-0.68); EOSINOPHILS PERCENT AUTO 0 % (0-6); Hematocrit 46.6 % (33.0-51.0); Hemoglobin 15.2 g/dL (11.5-16.0); IMMATURE GRAN ABSOLUTE AUTO 0.04 K/mm3 (0.00-0.10); IMMATURE GRAN PERCENT AUTO 0 % (0-1); LYMPHOCYTES ABSOLUTE AUTO 2.04 K/mm3 (0.84-5.20); LYMPHOCYTES PERCENT AUTO 16 % (21-46); MONOCYTES ABSOLUTE AUTO 0.53 K/mm3 (0.16-1.47); MONOCYTES PERCENT AUTO 4 % (4-13); Mean Corpuscular HGB 28.4 pg (26.0-34.0); Mean Corpuscular HGB Conc 32.6 g/dL (31.5-36.5); Mean Corpuscular Volume 87 fL (80-100); Mean Platelet Volume 10.1 fL (9.1-12.4); NEUTROPHILS ABSOLUTE AUTO 9.93 K/mm3 (1.96-9.15); NEUTROPHILS PERCENT AUTO 79 % (41-73); Platelet Count 372 K/mm3 (150-400); RDW Coefficient Variation 14.1 % (11.7-14.2); Red Blood Cell Count 5.35 M/mm3 (3.80-5.20); White Blood Cell Count 12.63 K/mm3 (4.00-11.30)
[2019-11-07 20:05] LABS: Base Excess Venous 3.4 mmol/L; Bicarbonate Venous 25.2 mmol/L (24.0-30.0); pH Blood Venous 7.33 (7.34-7.37)
[2019-11-07 20:28] LABS: Alanine Aminotransfer (ALT/SGP 31 U/L (12-78); Albumin, Blood 3.6 g/dL (3.4-5.0); Albumin/Globulin Ratio 0.9 (0.8-1.8); Alk Phos 93 U/L (50-136); Anion Gap 5 mmol/L (6-16); Aspartate Aminotrans (AST/SGOT 23 U/L (12-37); Bilirubin, Total 0.6 mg/dL (0.1-1.0); Blood Urea Nitrogen 21 mg/dL (8-24); Bun/Creatinine Ratio 24.7 (12.0-20.0); CO2, Blood 30 mmol/L (21-32); Calcium, Blood 8.4 mg/dL (8.5-10.1); Chloride, Blood 101 mmol/L (98-108); Creatinine, Blood 0.85 mg/dL (0.40-1.00); Globulin, Blood 3.9 g/dL (2.2-4.0); Glomerular Filtration Rate >60 (60-); Glucose, Blood 122 mg/dL (70-99); Potassium, Blood 4.3 mmol/L (3.5-5.5); Sodium, Blood 136 mmol/L (136-145); Total Protein, Blood 7.5 g/dL (6.4-8.2); Troponin I <0.015 ng/mL (0.000-0.040)
[2019-11-08] MEDS ORDERED: Colace100 MG PO (12:03)
[2019-11-08] MEDS ORDERED: OMEP20ER PO (12:03)
[2019-11-08] MEDS ORDERED: PRED20 PO (12:03)
== END 2019-11-08 00:45 | disposition home or self-care (01) ==
LOC: ER 18:38
PROVIDERS: Emergency Medicine
DX: R07.9 Chest pain, unspecified (principal); I10 Essential (primary) hypertension; E11.9 Type 2 diabetes mellitus without complications; G43.909 Migraine, unspecified, not intractable, without status migrainosus; F41.8 Other specified anxiety disorders; Z88.0 Allergy status to penicillin; Z79.899 Other long term (current) drug therapy; Z79.84 Long term (current) use of oral hypoglycemic drugs; Z87.891 Personal history of nicotine dependence
CPT/HCPCS: 36415; 71046; 71260; 80053; 82803; 83880; 84484; 85025; 93005; 93010; 96374-59; 99285-25; J2405; Q9967

== ENCOUNTER 2019-11-11 09:06 | Emergency (ER) | payer OTHER ==
[~2019-11-11] VITALS: Ht 154.9 cm; Wt 96.2 kg
[~2019-11-11 09:06] MED LIST changes: +Colace100 MG PO; +OMEP20ER PO; +PRED20 PO
[2019-11-11] MEDS ORDERED: ANUSOL HC PR (09:32)
[2019-11-11] MEDS ORDERED: LAVAP4L PO (09:32)
== END 2019-11-11 09:57 | disposition home or self-care (01) ==
LOC: ER 09:06
DX: K59.00 Constipation, unspecified (principal); Z88.0 Allergy status to penicillin; Z79.899 Other long term (current) drug therapy; Z79.52 Long term (current) use of systemic steroids; Z79.84 Long term (current) use of oral hypoglycemic drugs; J45.909 Unspecified asthma, uncomplicated; E11.9 Type 2 diabetes mellitus without complications; F41.9 Anxiety disorder, unspecified; F32.9 Major depressive disorder, single episode, unspecified; Z87.820 Personal history of traumatic brain injury; I10 Essential (primary) hypertension; Z87.891 Personal history of nicotine dependence
CPT/HCPCS: 99283

== ENCOUNTER 2020-02-03 07:31 | Emergency (ER) | payer OTHER ==
[~2020-02-03] VITALS: Ht 154.9 cm; Wt 95.2 kg
[~2020-02-03 07:31] MED LIST changes: +ANUSOL HC PR; +LAVAP4L PO
[2020-02-03 08:03] LABS: BASOPHILS ABSOLUTE AUTO 0.07 K/mm3 (0.00-0.23); BASOPHILS PERCENT AUTO 1 % (0-2); EOSINOPHILS ABSOLUTE AUTO 0.23 K/mm3 (0.00-0.68); EOSINOPHILS PERCENT AUTO 2 % (0-6); Hematocrit 49.1 % (33.0-51.0); Hemoglobin 15.8 g/dL (11.5-16.0); IMMATURE GRAN ABSOLUTE AUTO 0.08 K/mm3 (0.00-0.10); IMMATURE GRAN PERCENT AUTO 1 % (0-1); LYMPHOCYTES ABSOLUTE AUTO 2.19 K/mm3 (0.84-5.20); LYMPHOCYTES PERCENT AUTO 16 % (21-46); MONOCYTES ABSOLUTE AUTO 0.84 K/mm3 (0.16-1.47); MONOCYTES PERCENT AUTO 6 % (4-13); Mean Corpuscular HGB 28.2 pg (26.0-34.0); Mean Corpuscular HGB Conc 32.2 g/dL (31.5-36.5); Mean Corpuscular Volume 88 fL (80-100); Mean Platelet Volume 9.1 fL (9.1-12.4); NEUTROPHILS ABSOLUTE AUTO 10.43 K/mm3 (1.96-9.15); NEUTROPHILS PERCENT AUTO 75 % (41-73); Platelet Count 497 K/mm3 (150-400); RDW Coefficient Variation 14.3 % (11.7-14.2); RDW Standard Deviation 45.7 fL (35.1-46.3); White Blood Cell Count 13.84 K/mm3 (4.00-11.30)
[2020-02-03 08:24] LABS: Alanine Aminotransfer (ALT/SGP 30 U/L (12-78); Albumin, Blood 3.4 g/dL (3.4-5.0); Albumin/Globulin Ratio 0.7 (0.8-1.8); Alk Phos 97 U/L (50-136); Anion Gap 8 mmol/L (6-16); Aspartate Aminotrans (AST/SGOT 38 U/L (12-37); Bilirubin, Total 0.8 mg/dL (0.1-1.0); Blood Urea Nitrogen 14 mg/dL (8-24); Bun/Creatinine Ratio 21.8 (12.0-20.0); CO2, Blood 26 mmol/L (21-32); Calcium, Blood 9.2 mg/dL (8.5-10.1); Chloride, Blood 105 mmol/L (98-108); Creatinine, Blood 0.64 mg/dL (0.40-1.00); Globulin, Blood 4.6 g/dL (2.2-4.0); Glomerular Filtration Rate >60 (60-); Glucose, Blood 145 mg/dL (70-99); Sodium, Blood 139 mmol/L (136-145); Troponin I <0.015 ng/mL (0.000-0.040)
== END 2020-02-03 13:15 | disposition home or self-care (01) ==
LOC: ER 07:31
PROVIDERS: Emergency Medicine
DX: J98.01 Acute bronchospasm (principal); R07.9 Chest pain, unspecified; R00.2 Palpitations; E11.9 Type 2 diabetes mellitus without complications; F17.200 Nicotine dependence, unspecified, uncomplicated; Z88.0 Allergy status to penicillin; Z79.899 Other long term (current) drug therapy
CPT/HCPCS: 36415; 71046; 80053; 83690; 84484; 85025; 93005; 93010; 94640; 96374; 99285-25; J2550

== ENCOUNTER → 2020-02-07 | Outpatient (CLI) | payer OTHER | END | disposition home or self-care (01) | LOC: LAB 19:39 → LAB SHORT 19:39 | DX: L08.9 Local infection of the skin and subcutaneous tissue, unspecified (principal) | CPT/HCPCS: 87070; 87075; 87077; 87147; 87186; 87205 ==

== ENCOUNTER → 2020-03-01 | Outpatient (CLI) | payer OTHER | END | disposition home or self-care (01) | LOC: LAB 19:14 → LAB SHORT 19:14 | DX: L08.9 Local infection of the skin and subcutaneous tissue, unspecified (principal) | CPT/HCPCS: 87070; 87205 ==

== ENCOUNTER 2020-03-25 00:56 | Day surgery (SDC) | payer OTHER | END 2020-03-25 23:46 | disposition home or self-care (01) | LOC: WOUND 00:56 | DX: E11.628 Type 2 diabetes mellitus with other skin complications (principal); M79.672 Pain in left foot; E11.69 Type 2 diabetes mellitus with other specified complication; M86.8X9 Other osteomyelitis, unspecified sites; J43.9 Emphysema, unspecified; J30.2 Other seasonal allergic rhinitis; F17.210 Nicotine dependence, cigarettes, uncomplicated; I49.9 Cardiac arrhythmia, unspecified; I10 Essential (primary) hypertension; F41.8 Other specified anxiety disorders; F43.10 Post-traumatic stress disorder, unspecified; K21.9 Gastro-esophageal reflux disease without esophagitis; E11.42 Type 2 diabetes mellitus with diabetic polyneuropathy; E78.5 Hyperlipidemia, unspecified; G89.29 Other chronic pain; F25.9 Schizoaffective disorder, unspecified; Z79.84 Long term (current) use of oral hypoglycemic drugs; Z79.899 Other long term (current) drug therapy; Z88.0 Allergy status to penicillin | CPT/HCPCS: G0463 ==

== ENCOUNTER 2020-03-31 07:27 | Emergency (ER) | payer OTHER ==
[~2020-03-31] VITALS: Ht 154.9 cm; Wt 102.1 kg
[2020-03-31 08:00] LABS: BASOPHILS ABSOLUTE AUTO 0.07 K/mm3 (0.00-0.23); BASOPHILS PERCENT AUTO 0 % (0-2); EOSINOPHILS ABSOLUTE AUTO 0.01 K/mm3 (0.00-0.68); EOSINOPHILS PERCENT AUTO 0 % (0-6); Hematocrit 49.1 % (33.0-51.0); Hemoglobin 15.3 g/dL (11.5-16.0); IMMATURE GRAN ABSOLUTE AUTO 0.06 K/mm3 (0.00-0.10); IMMATURE GRAN PERCENT AUTO 0 % (0-1); LYMPHOCYTES PERCENT AUTO 9 % (21-46); MONOCYTES ABSOLUTE AUTO 0.61 K/mm3 (0.16-1.47); MONOCYTES PERCENT AUTO 4 % (4-13); Mean Corpuscular HGB 27.1 pg (26.0-34.0); Mean Corpuscular HGB Conc 31.2 g/dL (31.5-36.5); Mean Corpuscular Volume 87 fL (80-100); Mean Platelet Volume 9.3 fL (9.1-12.4); NEUTROPHILS ABSOLUTE AUTO 14.13 K/mm3 (1.96-9.15); NEUTROPHILS PERCENT AUTO 87 % (41-73); Platelet Count 395 K/mm3 (150-400); RDW Coefficient Variation 14.4 % (11.7-14.2); RDW Standard Deviation 46.2 fL (35.1-46.3); Red Blood Cell Count 5.64 M/mm3 (3.80-5.20); White Blood Cell Count 16.28 K/mm3 (4.00-11.30)
[2020-03-31 08:20] LABS: Alanine Aminotransfer (ALT/SGP 25 U/L (12-78); Albumin, Blood 3.8 g/dL (3.4-5.0); Albumin/Globulin Ratio 0.9 (0.8-1.8); Alk Phos 106 U/L (50-136); Anion Gap 8 mmol/L (6-16); Aspartate Aminotrans (AST/SGOT 21 U/L (12-37); Bilirubin, Total 0.7 mg/dL (0.1-1.0); Blood Urea Nitrogen 12 mg/dL (8-24); Bun/Creatinine Ratio 19.5 (12.0-20.0); CO2, Blood 30 mmol/L (21-32); Calcium, Blood 8.9 mg/dL (8.5-10.1); Chloride, Blood 102 mmol/L (98-108); Creatinine, Blood 0.62 mg/dL (0.40-1.00); Globulin, Blood 4.3 g/dL (2.2-4.0); Glomerular Filtration Rate >60 (60-); Glucose, Blood 139 mg/dL (70-99); Potassium, Blood 3.8 mmol/L (3.5-5.5); Sodium, Blood 140 mmol/L (136-145); Total Protein, Blood 8.1 g/dL (6.4-8.2)
[2020-03-31 09:32] LABS: Source, Urine Clean Catch
[2020-03-31 09:36] LABS: Appearance, Urine Turbid (Clear); Blood, Urine 2+ (Neg); Color, Urine Yellow (P-Yellow); Glucose Qualitative, Urine 1+ (Neg); Ketones, Urine 4+ (Neg); Leukocyte Esterase, Urine 1+ (Neg); Nitrite, Urine Pos (Neg); Protein, Urine 3+ (Neg); Specific Gravity, Urine 1.025 (1.003-1.022); Urobilinogen, Urine 3+ (Normal)
[2020-03-31 09:48] LABS: Bilirubin, Urine 2+ (Neg)
[2020-03-31 09:51] LABS: Amorphous Heavy (0-Heavy); Bacteria Mod /hpf; Squamous Epithelial Cells Many /hpf (Few)
[2020-03-31] MEDS ORDERED: CIPR500 PO (13:16)
== END 2020-03-31 14:05 | disposition home or self-care (01) ==
LOC: ER 07:27
PROVIDERS: Emergency Medicine
DX: N39.0 Urinary tract infection, site not specified (principal); R07.9 Chest pain, unspecified; R51.9 Headache, unspecified; J45.909 Unspecified asthma, uncomplicated; E11.9 Type 2 diabetes mellitus without complications; F41.9 Anxiety disorder, unspecified; F32.9 Major depressive disorder, single episode, unspecified; I10 Essential (primary) hypertension; F17.210 Nicotine dependence, cigarettes, uncomplicated; Z20.828 Contact with and (suspected) exposure to other viral communicable diseases; Z79.899 Other long term (current) drug therapy; Z79.84 Long term (current) use of oral hypoglycemic drugs; Z59.0 Homelessness; Z88.0 Allergy status to penicillin; Z79.52 Long term (current) use of systemic steroids
CPT/HCPCS: 36415; 71046; 80053; 81001; 83605; 85025; 87040; 87086; 93005; 93010; 96365; 96366; 96375; 99284-25; J1885; J1956; J7030; U0004

== ENCOUNTER 2020-03-31 22:40 | Emergency (ER) | payer OTHER ==
[~2020-03-31] VITALS: Ht 154.9 cm; Wt 102.1 kg
== END 2020-04-01 01:06 | disposition home or self-care (01) ==
LOC: ER 22:40
DX: N39.0 Urinary tract infection, site not specified (principal); E11.9 Type 2 diabetes mellitus without complications; F41.9 Anxiety disorder, unspecified; F32.9 Major depressive disorder, single episode, unspecified; J45.909 Unspecified asthma, uncomplicated; I10 Essential (primary) hypertension; F17.210 Nicotine dependence, cigarettes, uncomplicated; Z59.0 Homelessness; Z79.899 Other long term (current) drug therapy; Z88.0 Allergy status to penicillin; Z79.84 Long term (current) use of oral hypoglycemic drugs; Z79.52 Long term (current) use of systemic steroids
CPT/HCPCS: 99283

== ENCOUNTER 2020-05-03 10:41 | Emergency (ER) | payer OTHER ==
[~2020-05-03] VITALS: Ht 154.9 cm; Wt 102.1 kg
[~2020-05-03 10:41] MED LIST changes: -GABA300 PO; -METF500C PO; -Simvastatin20 MG PO
[2020-05-03 11:41] LABS: BASOPHILS ABSOLUTE AUTO 0.06 K/mm3 (0.00-0.23); BASOPHILS PERCENT AUTO 1 % (0-2); EOSINOPHILS ABSOLUTE AUTO 0.25 K/mm3 (0.00-0.68); EOSINOPHILS PERCENT AUTO 3 % (0-6); Hematocrit 42.4 % (33.0-51.0); IMMATURE GRAN ABSOLUTE AUTO 0.02 K/mm3 (0.00-0.10); IMMATURE GRAN PERCENT AUTO 0 % (0-1); LYMPHOCYTES ABSOLUTE AUTO 2.38 K/mm3 (0.84-5.20); LYMPHOCYTES PERCENT AUTO 27 % (21-46); MONOCYTES ABSOLUTE AUTO 0.85 K/mm3 (0.16-1.47); MONOCYTES PERCENT AUTO 10 % (4-13); Mean Corpuscular HGB 26.8 pg (26.0-34.0); Mean Corpuscular HGB Conc 30.7 g/dL (31.5-36.5); Mean Corpuscular Volume 87 fL (80-100); Mean Platelet Volume 8.6 fL (9.1-12.4); NEUTROPHILS ABSOLUTE AUTO 5.22 K/mm3 (1.96-9.15); NEUTROPHILS PERCENT AUTO 60 % (41-73); Platelet Count 373 K/mm3 (150-400); RDW Coefficient Variation 13.9 % (11.7-14.2); RDW Standard Deviation 44.6 fL (35.1-46.3); Red Blood Cell Count 4.85 M/mm3 (3.80-5.20); White Blood Cell Count 8.78 K/mm3 (4.00-11.30)
[2020-05-03 12:10] LABS: Alanine Aminotransfer (ALT/SGP 22 U/L (12-78); Albumin, Blood 3.3 g/dL (3.4-5.0); Albumin/Globulin Ratio 0.8 (0.8-1.8); Alk Phos 86 U/L (50-136); Anion Gap 2 mmol/L (6-16); Aspartate Aminotrans (AST/SGOT 20 U/L (12-37); Bilirubin, Total 0.3 mg/dL (0.1-1.0); Blood Urea Nitrogen 10 mg/dL (8-24); Bun/Creatinine Ratio 16.9 (12.0-20.0); CO2, Blood 34 mmol/L (21-32); Calcium, Blood 9.1 mg/dL (8.5-10.1); Chloride, Blood 101 mmol/L (98-108); Creatinine, Blood 0.59 mg/dL (0.40-1.00); Glomerular Filtration Rate >60 (60-); Glucose, Blood 79 mg/dL (70-99); Potassium, Blood 4.1 mmol/L (3.5-5.5); Sodium, Blood 137 mmol/L (136-145); Total Protein, Blood 7.3 g/dL (6.4-8.2); Troponin I 0.035 ng/mL (0.000-0.040)
[2020-05-03] MEDS ORDERED: ACETAMINOPHEN500 MG PO (13:27)
[2020-05-03] MEDS ORDERED: ENDOCET 7.5-321 EACH PO (13:54)
[2020-05-03] MEDS ORDERED: METF500C PO (13:55)
[2020-05-03] MEDS ORDERED: GABA300 PO (13:55)
[2020-05-03] MEDS ORDERED: LISI5 PO (13:56)
[2020-05-03] MEDS ORDERED: Simvastatin40 MG PO (13:56)
== END 2020-05-03 14:46 | disposition home or self-care (01) ==
LOC: ER 10:41
PROVIDERS: Emergency Medicine
DX: R07.9 Chest pain, unspecified (principal); E11.9 Type 2 diabetes mellitus without complications; F41.9 Anxiety disorder, unspecified; F32.9 Major depressive disorder, single episode, unspecified; I10 Essential (primary) hypertension; F17.210 Nicotine dependence, cigarettes, uncomplicated; Z79.899 Other long term (current) drug therapy; Z79.84 Long term (current) use of oral hypoglycemic drugs; Z88.0 Allergy status to penicillin; Z79.52 Long term (current) use of systemic steroids
CPT/HCPCS: 36415; 71045; 80053; 84484; 85025; 93005; 93010; 99284-25; A9270; J7030

== ENCOUNTER 2020-07-07 17:58 | Emergency (ER) | payer OTHER ==
[~2020-07-07] VITALS: Ht 154.9 cm; Wt 98.0 kg
[~2020-07-07 17:58] MED LIST changes: +ACETAMINOPHEN500 MG PO; +ENDOCET 7.5-321 EACH PO; +GABA300 PO; +METF500C PO; +Simvastatin40 MG PO
[2020-07-07 18:20] LABS: Source, Urine Clean Catch
[2020-07-07 18:27] LABS: Bilirubin, Urine Neg (Neg); Blood, Urine 2+ (Neg); Glucose Qualitative, Urine Neg (Neg); Ketones, Urine Neg (Neg); Leukocyte Esterase, Urine 1+ (Neg); Nitrite, Urine Neg (Neg); Protein, Urine 1+ (Neg); Urobilinogen, Urine NORM (Normal)
[2020-07-07 18:39] LABS: Appearance, Urine Hazy (Clear); Color, Urine Yellow (P-Yellow)
[2020-07-07 18:42] LABS: Bacteria Few /hpf; Squamous Epithelial Cells Mod /hpf (Few)
== END 2020-07-07 21:16 | disposition home or self-care (01) ==
LOC: ER 17:58
PROVIDERS: Physician Assistant
DX: R09.89 Other specified symptoms and signs involving the circulatory and respiratory systems (principal); J44.9 Chronic obstructive pulmonary disease, unspecified; R30.0 Dysuria; E11.9 Type 2 diabetes mellitus without complications; I10 Essential (primary) hypertension; F17.210 Nicotine dependence, cigarettes, uncomplicated; Z79.899 Other long term (current) drug therapy; Z88.0 Allergy status to penicillin; Z79.84 Long term (current) use of oral hypoglycemic drugs
CPT/HCPCS: 81001; 99284-25

== ENCOUNTER 2020-08-17 09:33 | Emergency (ER) | payer OTHER ==
[~2020-08-17] VITALS: Ht 154.9 cm; Wt 97.5 kg
[2020-08-17] MEDS ORDERED: OMEPRAZOLE20 M3 PO (10:06)
== END 2020-08-17 10:35 | disposition home or self-care (01) ==
LOC: ER 09:33
DX: R13.10 Dysphagia, unspecified (principal); E11.9 Type 2 diabetes mellitus without complications; I10 Essential (primary) hypertension; F17.210 Nicotine dependence, cigarettes, uncomplicated; Z88.0 Allergy status to penicillin; Z79.84 Long term (current) use of oral hypoglycemic drugs; Z79.899 Other long term (current) drug therapy
CPT/HCPCS: 71045; 99283-25; A9270

== ENCOUNTER 2020-08-20 07:24 | Emergency (ER) | payer OTHER ==
[~2020-08-20] VITALS: Ht 154.9 cm; Wt 97.5 kg
[~2020-08-20 07:24] MED LIST changes: +OMEPRAZOLE20 M3 PO
[2020-08-20 08:16] LABS: Source, Urine Clean Catch
[2020-08-20 08:19] LABS: Bilirubin, Urine Neg (Neg); Blood, Urine Neg (Neg); Glucose Qualitative, Urine Neg (Neg); Ketones, Urine 1+ (Neg); Leukocyte Esterase, Urine 1+ (Neg); Nitrite, Urine Neg (Neg); Protein, Urine Neg (Neg); Specific Gravity, Urine 1.015 (1.003-1.022); Urobilinogen, Urine NORM (Normal)
[2020-08-20 08:20] LABS: BASOPHILS ABSOLUTE AUTO 0.08 K/mm3 (0.00-0.23); BASOPHILS PERCENT AUTO 1 % (0-2); EOSINOPHILS PERCENT AUTO 2 % (0-6); Hematocrit 47.4 % (33.0-51.0); Hemoglobin 15.1 g/dL (11.5-16.0); IMMATURE GRAN ABSOLUTE AUTO 0.02 K/mm3 (0.00-0.10); IMMATURE GRAN PERCENT AUTO 0 % (0-1); LYMPHOCYTES ABSOLUTE AUTO 2.07 K/mm3 (0.84-5.20); LYMPHOCYTES PERCENT AUTO 24 % (21-46); MONOCYTES ABSOLUTE AUTO 0.64 K/mm3 (0.16-1.47); MONOCYTES PERCENT AUTO 8 % (4-13); Mean Corpuscular HGB Conc 31.9 g/dL (31.5-36.5); Mean Corpuscular Volume 85 fL (80-100); Mean Platelet Volume 8.9 fL (9.1-12.4); NEUTROPHILS ABSOLUTE AUTO 5.55 K/mm3 (1.96-9.15); NEUTROPHILS PERCENT AUTO 65 % (41-73); Platelet Count 379 K/mm3 (150-400); RDW Coefficient Variation 16.3 % (11.7-14.2); RDW Standard Deviation 49.7 fL (35.1-46.3); Red Blood Cell Count 5.59 M/mm3 (3.80-5.20); White Blood Cell Count 8.56 K/mm3 (4.00-11.30)
[2020-08-20 08:28] LABS: Appearance, Urine Hazy (Clear); Color, Urine Yellow (P-Yellow)
[2020-08-20 08:30] LABS: Bacteria Mod /hpf; Red Blood Cells, Urine 0-2 /hpf (0-2); Squamous Epithelial Cells Mod /hpf (Few)
[2020-08-20 08:37] LABS: Alanine Aminotransfer (ALT/SGP 29 U/L (12-78); Albumin, Blood 3.3 g/dL (3.4-5.0); Albumin/Globulin Ratio 0.8 (0.8-1.8); Alk Phos 90 U/L (50-136); Anion Gap 5 mmol/L (6-16); Aspartate Aminotrans (AST/SGOT 22 U/L (12-37); Bilirubin, Total 0.6 mg/dL (0.1-1.0); Blood Urea Nitrogen 8 mg/dL (8-24); Bun/Creatinine Ratio 13.7 (12.0-20.0); CO2, Blood 29 mmol/L (21-32); Calcium, Blood 8.8 mg/dL (8.5-10.1); Chloride, Blood 103 mmol/L (98-108); Creatinine, Blood 0.59 mg/dL (0.40-1.00); Globulin, Blood 4.2 g/dL (2.2-4.0); Glomerular Filtration Rate >60 (60-); Glucose, Blood 120 mg/dL (70-99); Potassium, Blood 4.1 mmol/L (3.5-5.5); Sodium, Blood 137 mmol/L (136-145); Total Protein, Blood 7.5 g/dL (6.4-8.2)
[2020-08-20] MEDS ORDERED: NITR100CA PO (09:14)
== END 2020-08-20 10:54 | disposition home or self-care (01) ==
LOC: ER 07:24
PROVIDERS: Emergency Medicine
DX: N39.0 Urinary tract infection, site not specified (principal); G89.29 Other chronic pain; E11.9 Type 2 diabetes mellitus without complications; I10 Essential (primary) hypertension; J45.909 Unspecified asthma, uncomplicated; F17.210 Nicotine dependence, cigarettes, uncomplicated; Z88.0 Allergy status to penicillin
CPT/HCPCS: 36415; 80053; 81001; 85025; 87086; 96374; 99285-25; J1885; J7030; P9612

== ENCOUNTER 2020-10-15 17:52 | Emergency (ER) | payer OTHER ==
[~2020-10-15] VITALS: Ht 157.5 cm; Wt 104.3 kg
[~2020-10-15 17:52] MED LIST changes: +NITR100CA PO
[2020-10-15 18:48] LABS: BASOPHILS ABSOLUTE AUTO 0.05 K/mm3 (0.00-0.23); BASOPHILS PERCENT AUTO 0 % (0-2); EOSINOPHILS ABSOLUTE AUTO 0.06 K/mm3 (0.00-0.68); EOSINOPHILS PERCENT AUTO 1 % (0-6); Hematocrit 48.1 % (33.0-51.0); Hemoglobin 15.3 g/dL (11.5-16.0); IMMATURE GRAN ABSOLUTE AUTO 0.03 K/mm3 (0.00-0.10); IMMATURE GRAN PERCENT AUTO 0 % (0-1); LYMPHOCYTES ABSOLUTE AUTO 2.32 K/mm3 (0.84-5.20); LYMPHOCYTES PERCENT AUTO 19 % (21-46); MONOCYTES ABSOLUTE AUTO 1.06 K/mm3 (0.16-1.47); MONOCYTES PERCENT AUTO 9 % (4-13); Mean Corpuscular HGB Conc 31.8 g/dL (31.5-36.5); Mean Corpuscular Volume 85 fL (80-100); Mean Platelet Volume 8.7 fL (9.1-12.4); NEUTROPHILS ABSOLUTE AUTO 8.99 K/mm3 (1.96-9.15); NEUTROPHILS PERCENT AUTO 72 % (41-73); Platelet Count 435 K/mm3 (150-400); RDW Coefficient Variation 15.4 % (11.7-14.2); Red Blood Cell Count 5.67 M/mm3 (3.80-5.20); White Blood Cell Count 12.51 K/mm3 (4.00-11.30)
[2020-10-15 19:39] LABS: Alanine Aminotransfer (ALT/SGP 21 U/L (12-78); Albumin, Blood 3.7 g/dL (3.4-5.0); Albumin/Globulin Ratio 0.8 (0.8-1.8); Alk Phos 96 U/L (50-136); Anion Gap 8 mmol/L (6-16); Aspartate Aminotrans (AST/SGOT 16 U/L (12-37); Bilirubin, Total 0.6 mg/dL (0.1-1.0); Blood Urea Nitrogen 13 mg/dL (8-24); Bun/Creatinine Ratio 20.3 (12.0-20.0); CO2, Blood 31 mmol/L (21-32); Calcium, Blood 9.9 mg/dL (8.5-10.1); Chloride, Blood 99 mmol/L (98-108); Creatinine, Blood 0.64 mg/dL (0.40-1.00); Globulin, Blood 4.8 g/dL (2.2-4.0); Glomerular Filtration Rate >60 (60-); Glucose, Blood 140 mg/dL (70-99); Potassium, Blood 3.9 mmol/L (3.5-5.5); Sodium, Blood 138 mmol/L (136-145); Total Protein, Blood 8.5 g/dL (6.4-8.2); Troponin I 0.021 ng/mL (0.000-0.040)
[2020-10-15 19:40] LABS: Source, Urine Clean Catch
[2020-10-15 19:43] LABS: Bilirubin, Urine Neg (Neg); Blood, Urine Neg (Neg); Glucose Qualitative, Urine Neg (Neg); Ketones, Urine 2+ (Neg); Leukocyte Esterase, Urine 1+ (Neg); Nitrite, Urine Neg (Neg); Protein, Urine 2+ (Neg); Urobilinogen, Urine 1+ (Normal)
[2020-10-15 19:49] LABS: Appearance, Urine Hazy (Clear); Color, Urine Yellow (P-Yellow)
[2020-10-15 19:50] LABS: Red Blood Cells, Urine Not Seen /hpf (0-2); Squamous Epithelial Cells Many /hpf (Few)
[2020-10-15 19:51] LABS: Bacteria Mod /hpf
[2020-10-15] MEDS ORDERED: ONDA4ODT MM (22:56)
== END 2020-10-15 23:14 | disposition home or self-care (01) ==
LOC: ER 17:52
PROVIDERS: Physician Assistant
DX: R11.2 Nausea with vomiting, unspecified (principal); R10.84 Generalized abdominal pain; R07.89 Other chest pain; E11.9 Type 2 diabetes mellitus without complications; I10 Essential (primary) hypertension; F17.210 Nicotine dependence, cigarettes, uncomplicated; Z88.0 Allergy status to penicillin
CPT/HCPCS: 36415; 71045; 74019; 80053; 81001; 83690; 84484; 85025; 87077; 87086; 87186; 93005; 93010; 96374; 99284-25; J2405; J7030